=== PATIENT | female | born 1955 | race Caucasian/White ===

== ENCOUNTER → 2017-05-13 | Outpatient (CLI) | payer BC ==
--- NOTE | 2017-05-14 11:15 | MM ---
Reason for exam: screening (asymptomatic). Last mammogram was performed 1 year and 2 months ago. History: Patient is postmenopausal. Benign excisional biopsy of the right breast. Physical Findings: A clinical breast exam by your physician is recommended on an annual basis and results should be correlated with mammographic findings. MG Screening Mammo w CAD Bilateral CC and MLO view(s) were taken. Prior study comparison: March 12, 2016, bilateral MG screening mammo w CAD. March 12, 2015, bilateral MG screening mammo w CAD. There are scattered fibroglandular densities. No significant changes when compared with prior studies. ASSESSMENT: Negative, BI-RAD 1 RECOMMENDATION: Routine screening mammogram of both breasts in 1 year.
== END | disposition home or self-care (01) ==
LOC: RADMAMWWP 09:35
PROVIDERS: ATTEND Family Medicine
DX: Z12.31 Encounter for screening mammogram for malignant neoplasm of breast (principal)
CPT/HCPCS: 77067

== ENCOUNTER → 2017-05-13 | Outpatient (CLI) | payer BC ==
--- NOTE | 2017-05-13 11:24 | US ---
EXAMINATION TYPE: US liver DATE OF EXAM: 05/13/2017 COMPARISON: 03/12/2016 CLINICAL HISTORY: 61-year-old female K74.3 PRIMARY BILIARY CIRRHOSIS. Technique: Multiple sonographic images of the right upper quadrant are obtained. FINDINGS: Liver Length: 15.7 cm Gallbladder Wall: 0.2 cm CBD: 0.4 cm Right Kidney: 9.3 x 3.7 x 4.1 cm Pancreas: visualized portions wnl, tail obscured by overlying midline bowel gas Liver: There is heterogeneous echotexture with some images suggesting a nodular contour. No focal le carrie is identified. The main portal vein is patent but with somewhat sluggish hepatopedal flow at 10 cm/s. There is also mild dilatation of the main portal vein at 1.5 cm. Overall scanning of the liver is limited to intercostal views. Gallbladder: A couple small 7 mm echogenic foci are seen when the patient is in suggesting small calc meme. Evidence for sonographic Michele's sign: no CBD: wnl Right Kidney: No hydronephrosis IMPRESSION: 1. There is now heterogeneous appearance to the liver with some images showing a nodular contour. The se findings suggest cirrhosis. 2. Views of the liver are limited to intercostal windows. No focal liver lesion is seen on these view s. 3. Main portal vein is patent with appropriate flow direction but with mild dilatation and somewhat s luggish flow. Findings suggest underlying portal venous hypertension. 4. Cholelithiasis.
== END | disposition home or self-care (01) ==
LOC: RADUSWWP 09:39
DX: K76.89 Other specified diseases of liver (principal)
CPT/HCPCS: 76705

== ENCOUNTER → 2018-09-01 | Outpatient (CLI) | payer BC ==
--- NOTE | 2018-09-01 11:33 | MM ---
Reason for exam: screening (asymptomatic). Last mammogram was performed 1 year and 4 months ago. History: Patient is postmenopausal. Benign excisional biopsy of the right breast. Physical Findings: A clinical breast exam by your physician is recommended on an annual basis and results should be correlated with mammographic findings. MG Screening Mammo w CAD Bilateral CC and MLO view(s) were taken. Prior study comparison: May 13, 2017, bilateral MG screening mammo w CAD. March 12, 2016, bilateral MG screening mammo w CAD. There are scattered fibroglandular densities. There is chronic nodularity in the left axilla. There is no discrete abnormality. ASSESSMENT: Negative, BI-RAD 1 RECOMMENDATION: Routine screening mammogram of both breasts in 1 year.
== END | disposition home or self-care (01) ==
LOC: RADMAMWWP 09:41
PROVIDERS: ATTEND Family Medicine
DX: Z12.31 Encounter for screening mammogram for malignant neoplasm of breast (principal)
CPT/HCPCS: 77067

== ENCOUNTER → 2018-09-01 | Outpatient (CLI) | payer BC ==
--- NOTE | 2018-09-01 13:33 | US ---
EXAMINATION TYPE: US liver DATE OF EXAM: 09/01/2018 COMPARISON: US May 13, 2017 CLINICAL HISTORY: K74.3 Primary Billary Cirrhosis. EXAM MEASUREMENTS: Liver Length: 13.7 cm Gallbladder Wall: 0.2 cm CBD: 0.5 cm Right Kidney: 9.5 x 3.9 x 4.9 cm Pancreas: visualized portions wnl Liver: nodular contour, coarse echotexture Gallbladder: small echogenic focus appears attached to wall measures 0.7 cm. Evidence for sonographic Michele's sign: No CBD: wnl Right Kidney: No hydronephrosis or masses seen Visualized pancreas felt within normal limits. Visualized liver is lobulated in contour and heterogen eity without mass or ductal dilatation seen on images saved. No ascites is present. Gallbladder is se en without shadowing mobile gallstone. There is 7 mm shadowing focus in wall could reflect focal chol esterolosis or nonmobile calculus. Increased cortical echogenicity right kidney is present. No hydron ephrosis is seen. IMPRESSION: Stable heterogeneous hyperechoic appearance of liver with lobulated margin consistent wit h known cirrhosis.
== END | disposition home or self-care (01) ==
LOC: RADUSWWP 09:37
DX: K74.3 Primary biliary cirrhosis (principal)
CPT/HCPCS: 76705

== ENCOUNTER 2019-03-09 09:19 | Emergency (ER) | payer BC ==
[2019-03-09 09:30] VITALS: RESP 20; TEMP 97.5
--- NOTE | 2019-03-09 10:07 | ED ---
General Adult HPI - General Chief complaint: Upper Respiratory Infection Stated complaint: Poss Pneumonia Time Seen by Provider: 03/09/19 09:34 Source: patient, RN notes reviewed Mode of arrival: ambulatory Limitations: no limitations - History of Present Illness Initial comments: 63-year-old female with a past medical history of GERD, primary biliary c holangitis presents to the emergency department for cough times one month. Patient states that she is currently on Bactrim for a sinus infection and ear infection as she was having pain in both ears. States that she has had a cough for the past month. States that it is just not going away. Patient states her chest feels congested and her cough is productive. She denies any shortness of breath. Denies chest pain. Denies fevers or chills at home. Patient states that at this time she is actually feeling much better however felt worse last night so decided to be seen today. Patient has no other complaints at this time including shortness of breath, chest pain, abdominal pain, nausea or vomiting, headache, or visual changes. - Related Data Home Medications Medication Instructions Recorded Confirmed Calcium Carbonate [Calcium] 600 mg PO DAILY 01/17/16 01/17/16 Cholecalciferol [Vitamin D3] 1,000 unit PO DAILY 01/17/16 01/17/16 FLUoxetine HCL [PROzac] 20 mg PO DAILY 01/17/16 01/17/16 Loratadine [Claritin] 10 mg PO DAILY 01/17/16 01/17/16 Omeprazole [PriLOSEC] 20 mg PO DAILY PRN 01/17/16 01/20/16 Ursodiol [Actigall] 600 mg PO BID 01/17/16 01/17/16 hydrOXYzine HCL [Atarax] 25 mg PO DAILY 01/17/16 01/17/16 Previous Rx's Medication Instructions Recorded Albuterol Inhaler [Ventolin Hfa 1 - 2 puff INHALATION Q6HR PRN #1 03/09/19 Inhaler] inhaler predniSONE 50 mg PO DAILY #5 tablet 03/09/19 Allergies Allergy/AdvReac Type Severity Reaction Status Date / Time No Known Allergies Allergy Verified 03/09/19 09:30 Review of Systems ROS Statement: Those systems with pertinent positive or pertinent negative responses have been documented in the HPI. ROS Other: All systems not noted in ROS Statement are negative. Past Medical History Past Medical History: GERD/Reflux, Liver Disease Additional Past Medical History / Comment(s): primary biliary cholangitis History of Any Multi-Drug Resistant Organisms: None Reported Past Surgical History: Breast Surgery, Orthopedic Surgery Additional Past Surgical History / Comment(s): colonoscopy, tendon surg on f derrell, breast biopsy Past Anesthesia/Blood Transfusion Reactions: No Reported Reaction Smoking Status: Never smoker Past Alcohol Use History: None Reported Past Drug Use History: None Reported - Past Family History Mother Family Medical History: Deep Vein Thrombosis (DVT) General Exam Limitations: no limitations General appearance: alert, in no apparent distress Head exam: Present: atraumatic, normocephalic, normal inspection Eye exam: Present: normal appearance, PERRL, EOMI. Absent: scleral icterus, conjunctival injection, periorbital swelling ENT exam: Present: normal exam, mucous membranes moist Neck exam: Present: normal inspection, full ROM. Absent: tenderness, me ningismus, lymphadenopathy Respiratory exam: Present: normal lung sounds bilaterally. Absent: respiratory distress, wheezes (No wheezing noted bilaterally), rales, rhonchi, stridor Cardiovascular Exam: Present: regular rate, normal rhythm, normal heart sounds. Absent: systolic murmur, diastolic murmur, rubs, gallop, clicks GI/Abdominal exam: Present: soft, normal bowel sounds. Absent: distended, tenderness, guarding, rebound, rigid Neurological exam: Present: alert Course Vital Signs 03/09/19 09:25 Temperature 97.5 F L Pulse Rate 100 Respiratory 20 Rate Blood Pressure 152/79 O2 Sat by Pulse 96 Oximetry Medical Decision Making - Medical Decision Making 63-year-old female presents for cough times one month. Patient has also been congested and had ear pain. States her pain has resolved. Patient is currently a Bactrim for sinus infection. She denies any significant chest pain or shortness of breath with this cough. Patient states that cough is productive in nature. Denies COPD or smoking history. On examination lungs are clear to auscultation bilaterally. There is no wheezing or rhonchi. Patient is in no respiratory distress. Vitals are stable. No fever here or history of fever at home.Chest x-ray shows no evidence for acute pulmonary disease. Patient likely has a bronchitis. Patient will be treated with a steroid and an inhaler. She will follow up with primary care in 1-2 days prior to return here if she has any worsening symptoms such as chest pain or shortness of breath which were discussed with her. Disposition Clinical Impression: Bronchitis Disposition: HOME SELF-CARE Condition: Good Instructions (If sedation given, give patient instructions): Acute Bronchitis (ED) Additional Instructions: Please use medications as directed. These were prescribed to [facility] in [place]. Follow-up with primary care in 1-2 days. If you have any worsening symptoms such as shortness of breath or chest pain return to the emergency department. Prescriptions: predniSONE 50 mg PO DAILY #5 tablet Albuterol Inhaler [Ventolin Hfa Inhaler] 1 - 2 puff INHALATION Q6HR PRN #1 inhaler PRN Reason: Shortness Of Breath Is patient prescribed a controlled substance at d/c from ED?: No Referrals: Lalita Jules MD [Primary Care Provider] - 1-2 days Time of Disposition: 11:02
--- NOTE | 2019-03-09 10:45 | XR ---
EXAMINATION TYPE: XR chest 2V DATE OF EXAM: 03/09/2019 COMPARISON: NONE HISTORY: Shortness of breath TECHNIQUE: Frontal and lateral views of the chest are obtained. FINDINGS: Scattered senescent parenchymal changes noted. Hyperinflation compatible with COPD. No evidence for infiltrate. Right basilar linear atelectasis and/or parenchymal scarring. Heart size is stable. Mediastinal structures are stable and grossly unremarkable. No evidence for hilar prominence. Degenerative changes dorsal spine. IMPRESSION: 1. No evidence for acute pulmonary disease.
[2019-03-09 11:21] VITALS: BP 129/83; PULSE 95
== END 2019-03-09 11:21 | disposition home or self-care (01) ==
LOC: EC 09:19
DX: J40 Bronchitis, not specified as acute or chronic (principal); J32.9 Chronic sinusitis, unspecified; K21.9 Gastro-esophageal reflux disease without esophagitis; Z79.899 Other long term (current) drug therapy
CPT/HCPCS: 71046; 99283

== ENCOUNTER → 2019-03-15 | Outpatient (CLI) | payer BC ==
--- NOTE | 2019-03-15 15:49 | US ---
EXAMINATION TYPE: US pelvic complete DATE OF EXAM: 03/15/2019 COMPARISON: NONE CLINICAL HISTORY: N93.9 ABN UTERINE AND VAG BLEEDING. 1 episode of spotting. Patient doesn't take any hormones. TECHNIQUE: Transabdominal (TA). Date of LMP: 2010 EXAM MEASUREMENTS: Uterus: 5.3 x 2.1 x 3.1 cm Endometrial Stripe: 0.4 cm Right Ovary: 1.5 x 1.3 x 1.4 cm Left Ovary: 1.8 x 1.0 x 1.2 cm 1. Uterus: Anteverted wnl 2. Endometrium: wnl 3. Right Ovary: wnl 4. Left Ovary: wnl 5. Bilateral Adnexa: wnl 6. Posterior cul-de-sac: wnl IMPRESSION: Unremarkable pelvic ultrasound. Endometrial thickness is within normal limits for a postm enopausal female. Direct visualization should remain a consideration in this patient with [place] bleeding.
== END | disposition home or self-care (01) ==
LOC: RADUSWWP 15:16
PROVIDERS: ATTEND Family Medicine
DX: N95.0 Postmenopausal bleeding (principal)
CPT/HCPCS: 76856

== ENCOUNTER → 2019-06-16 | Outpatient (CLI) | payer BC ==
--- NOTE | 2019-06-16 15:18 | US ---
EXAMINATION TYPE: US liver DATE OF EXAM: 06/16/2019 COMPARISON: NONE CLINICAL HISTORY: K74.60 CIRRHOSIS OF LIVER. EXAM MEASUREMENTS: Liver Length: 16.6 cm Gallbladder Wall: 0.2 cm CBD: 0.6 cm Right Kidney: 9.2 x 3.6 x 4.0 cm Pancreas: wnl Liver: grossly heterogeneous and nodular Gallbladder: partially obscured by overlying bowel gas, small non mobile echogenic focus seen Evidence for sonographic Michele's sign: no CBD: wnl Right Kidney: Inferior pole completely obscured by overlying bowel gas IMPRESSION: 1. No acute ultrasound abnormality. 2. Mild hepatomegaly signal change can be compatible with early cirrhosis.
== END | disposition home or self-care (01) ==
LOC: RADUSWWP 07:39
PROVIDERS: ATTEND Internal Medicine Gastroenterology
DX: R16.0 Hepatomegaly, not elsewhere classified (principal); K74.60 Unspecified cirrhosis of liver
CPT/HCPCS: 76705

== ENCOUNTER → 2020-01-11 | Outpatient (CLI) | payer BC ==
--- NOTE | 2020-01-15 09:06 | MM ---
Reason for exam: screening (asymptomatic). Last mammogram was performed 1 year and 4 months ago. History: Patient is postmenopausal. Benign excisional biopsy of the right breast. Physical Findings: A clinical breast exam by your physician is recommended on an annual basis and results should be correlated with mammographic findings. MG Screening Mammo w CAD Bilateral CC and MLO view(s) were taken. Prior study comparison: September 01, 2018, bilateral MG screening mammo w CAD. May 13, 2017, bilateral MG screening mammo w CAD. There are scattered fibroglandular densities. There is chronic nodularity in the left breast. No significant changes when compared with prior studies. ASSESSMENT: Benign, BI-RAD 2 RECOMMENDATION: Routine screening mammogram of both breasts in 1 year.
== END | disposition home or self-care (01) ==
LOC: RADMAMWWP 11:18
PROVIDERS: ATTEND Family Medicine
DX: Z12.31 Encounter for screening mammogram for malignant neoplasm of breast (principal)
CPT/HCPCS: 77067

== ENCOUNTER 2020-06-20 11:05 | Day surgery (SDC) | payer BC ==
[2020-06-19 10:26] VITALS: BMI 28.3
[~2020-06-20 11:05] MED LIST: LIDOCAINE 1% (10MG/ML) FOR IV START INTRADERMA PRN
[2020-06-20 11:45] VITALS: TEMP 98.5
[2020-06-20] MEDS: LACTATED RINGERS 1,000 ML IV SCH ×2 (11:51→13:15)
[2020-06-20] MEDS ORDERED: LIDOCAINE 1% INJ 10MG/ML (20 ML MDV) ONE (13:16)
[2020-06-20] MEDS ORDERED: PROPOFOL 10 MG/ML 20 ML VIAL IV ONE (13:16)
[2020-06-20 13:39] VITALS: RESP 16
--- NOTE | 2020-06-20 13:45 | P.PCN ---
Date of Procedure: 06/20/20 Description of Procedure: BRIEF HISTORY: Patient is a 64-year-old female presenting for outpatient esophagogastroduodenoscopy for evaluation of GERD. Patient reports symptoms of reflux and intermittent solid food dysphagia. She has a known history of primary biliary cholangitis on Actigall. PROCEDURE PERFORMED: Esophagogastroduodenoscopy with biopsy. PREOPERATIVE DIAGNOSIS: GERD, esophageal dysphagia, primary biliary cholangitis. ESTIMATED BLOOD LOSS: Minimal. IV sedation per anesthesia. PROCEDURE: After informed consent was obtained, the patient was brought into the endoscopy unit. IV sedation was administered by Anesthesia under continuous monitoring. Initially the Olympus GIF-190 video endoscope was inserted into the mouth. Esophagus intubated without any difficulty. It was gradually advanced into the stomach and duodenum and carefully examined. The bulb and the second part of the duodenum appeared normal, with biopsies taken. The scope at this time was withdrawn to the stomach, adequately insufflated with air, and upon careful examination, mucosa of the antrum, body, cardia and the fundus appeared normal, with some mild scattered erythema and nodularity suggestive of mild gastritis with biopsies of the antrum and body taken. The scope was then withdrawn into t he esophagus. The GE junction was located at 36 cm from the incisors and biopsied. Patient had a 3 cm hiatal hernia. The esophagus was biopsied to rule out eosinophilic esophagitis. The esophagus appeared normal. There were no erosions or ulcerations seen and the patient tolerated the procedure well. IMPRESSION: 1. Mild gastritis. 2. Moderate hiatal hernia. 3. Biopsies of the duodenum, antrum and body, GE junction and mid esophagus. RECOMMENDATIONS: The findings of this examination were discussed with the patient and her family. Okay to resume diet. Okay to resume medication. Continue current medical management. Follow-up in the GI clinic as scheduled for results of biopsies.
[2020-06-20 14:09] VITALS: BP 135/87; PULSE 76
== END 2020-06-20 14:26 | disposition home or self-care (01) ==
LOC: ORWHC2ENDO 11:05
PROVIDERS: ATTEND Internal Medicine
DX: K29.50 Unspecified chronic gastritis without bleeding (principal); D72.10 Eosinophilia, unspecified; K44.9 Diaphragmatic hernia without obstruction or gangrene; R13.14 Dysphagia, pharyngoesophageal phase; F32.9 Major depressive disorder, single episode, unspecified; R23.4 Changes in skin texture; Z98.890 Other specified postprocedural states; Z87.19 Personal history of other diseases of the digestive system; Z79.899 Other long term (current) drug therapy
CPT/HCPCS: 43239; 88305; 88312; 88342

== ENCOUNTER → 2020-06-25 | Outpatient (CLI) | payer BC ==
--- NOTE | 2020-06-25 17:22 | US ---
EXAMINATION TYPE: US liver DATE OF EXAM: 06/25/2020 COMPARISON: US 2019 CLINICAL HISTORY: K74.60 Unspecified cirrhosis of liver. EXAM MEASUREMENTS: Liver Length: 16.2 cm Gallbladder Wall: 0.2 cm CBD: 0.3 cm Right Kidney: 9.0 x 3.6 x 4.1 cm Pancreas: visualized portions wnl, limited by overlying midline bowel gas Liver: heterogeneous and nodular Gallbladder: wnl Evidence for sonographic Michele's sign: no CBD: visualized portions wnl, limited by overlying bowel gas Right Kidney: wnl IMPRESSION: 1. Heterogenous appearance to the liver. Mild hepatomegaly is present.
== END | disposition home or self-care (01) ==
LOC: RADUSWWP 07:41
PROVIDERS: ATTEND Internal Medicine Gastroenterology
DX: R16.0 Hepatomegaly, not elsewhere classified (principal); K74.60 Unspecified cirrhosis of liver
CPT/HCPCS: 76705

== ENCOUNTER → 2021-03-07 | Outpatient (CLI) | payer BC ==
--- NOTE | 2021-03-07 08:41 | US ---
EXAMINATION TYPE: US liver DATE OF EXAM: 03/07/2021 COMPARISON: US 06-25-2020 CLINICAL HISTORY: K74.60 CIRRHOSIS IF LIVER. EXAM MEASUREMENTS: Liver Length: 15.9 cm Gallbladder Wall: 0.2 cm CBD: 0.4 cm Right Kidney: 9.1 x 3.7 x 3.8 cm Pancreas: visualized portions wnl, limited by overlying midline bowel gas Liver: nodular, heterogeneous Gallbladder: wnl Evidence for sonographic Michele's sign: no CBD: visualized portions wnl, limited by overlying bowel gas Right Kidney: wnl IMPRESSION: The liver is nodular in contour and heterogeneous in echotexture, consistent with prior cirrhosis.
== END | disposition home or self-care (01) ==
LOC: RADUSWWP 07:56
PROVIDERS: ATTEND Internal Medicine Gastroenterology
DX: K74.60 Unspecified cirrhosis of liver (principal)
CPT/HCPCS: 76705

== ENCOUNTER → 2021-03-07 | Outpatient (CLI) | payer BC ==
--- NOTE | 2021-03-10 11:02 | MM ---
Reason for exam: screening (asymptomatic). Last mammogram was performed 1 year and 2 months ago. History: Patient is postmenopausal. Benign excisional biopsy of the right breast. Physical Findings: A clinical breast exam by your physician is recommended on an annual basis and results should be correlated with mammographic findings. MG Screening Mammo w CAD Bilateral CC and MLO view(s) were taken. Prior study comparison: January 11, 2020, bilateral MG screening mammo w CAD. September 01, 2018, bilateral MG screening mammo w CAD. There is chronic nodularity in the left breast. No significant changes when compared with prior studies. ASSESSMENT: Benign, BI-RAD 2 RECOMMENDATION: Routine screening mammogram of both breasts in 1 year.
== END | disposition home or self-care (01) ==
LOC: RADMAMWWP 07:54
PROVIDERS: ATTEND Family Medicine
DX: Z12.31 Encounter for screening mammogram for malignant neoplasm of breast (principal); Z78.0 Asymptomatic menopausal state
CPT/HCPCS: 77067

== ENCOUNTER → 2022-03-13 | Outpatient (CLI) | payer MEDICARE ==
--- NOTE | 2022-03-13 11:57 | US ---
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 TECHNIQUE: Multiple sonographic images of the abdomen are obtained. FINDINGS: EXAM MEASUREMENTS: Liver Length: 16.2 cm Gallbladder Wall: 0.2 cm CBD: 0.8 cm Spleen: 11.2 cm Right Kidney: 9.0 x 3.7 x 4.3 cm Left Kidney: 9.7 x 4.6 x 4.0 cm Pancreas: visualized portions wnl, limited by overlying midline bowel gas Liver: nodular, heterogeneous , no evidence of suspicious mass. Gallbladder: 0.6 cm mobile stone Evidence for sonographic Michele's sign: no CBD: dilated Spleen: wnl Right Kidney: wnl Left Kidney: 1.6 x 1.9 x 1.6cm hypoechoic area midpole Upper IVC: wnl Abd Aorta: wnl IMPRESSION: 1. Hepatic cirrhosis without suspicious masses visualized. 2. Cholelithiasis. 3. No evidence of obstructive uropathy. 4. Left renal cyst.
== END | disposition home or self-care (01) ==
LOC: RADUSWWP 11:01
DX: K74.3 Primary biliary cirrhosis (principal); K80.20 Calculus of gallbladder without cholecystitis without obstruction; N28.1 Cyst of kidney, acquired
CPT/HCPCS: 76700

== ENCOUNTER → 2022-03-13 | Outpatient (CLI) | payer MEDICARE ==
--- NOTE | 2022-03-16 07:47 | MM ---
Reason for Exam: Screening (asymptomatic). Last screening mammogram was performed 12 month(s) ago. Patient History: Menarche at age 14. First Full-Term at age 31. Late child-bearing (after 30). Postmenopausal. Benign Excisional Biopsy on the right side. Risk Values: Lora 5 year model risk: 2.7%. NCI Lifetime model risk: 10.0%. Prior Study Comparison: 09/01/2018 Bilateral Screening Mammogram, [facility]. 01/11/2020 Bilateral Screening Mammogram, [facility]. 03/07/2021 Bilateral Screening Mammogram, [facility]. Tissue Density: There are scattered fibroglandular densities. Findings: Analyzed By CAD. There is no suspicious group of microcalcifications or new suspicious mass in either breast. Overall Assessment: Negative, BI-RAD 1 Management: Screening Mammogram of both breasts in 1 year. A clinical breast exam by your physician is recommended on an annual basis and results should be correlated with mammographic findings. Electronically signed and approved by: Stuart Casillas M.D. Radiologis
== END | disposition home or self-care (01) ==
LOC: RADUSWWP 10:53
PROVIDERS: ATTEND Family Medicine
DX: Z12.31 Encounter for screening mammogram for malignant neoplasm of breast (principal); Z78.0 Asymptomatic menopausal state
CPT/HCPCS: 77067

== ENCOUNTER → 2024-01-04 | Outpatient (CLI) | payer MEDICARE ==
--- NOTE | 2024-01-05 17:20 | MM ---
Reason for Exam: Screening (asymptomatic). Last mammogram was performed 1 year(s) and 10 month(s) ago. Patient History: Menarche at age 14. First Full-Term at age 31. Late child-bearing (after 30). Postmenopausal. Benign Excisional Biopsy on the right side. Risk Values: Lora 5 year model risk: 2.8%. NCI Lifetime model risk: 9.3%. Prior Study Comparison: 01/11/2020 Bilateral Screening Mammogram, [facility]. 03/07/2021 Bilateral Screening Mammogram, [facility]. 03/13/2022 Bilateral MG screening mammo w CAD, [facility]. Tissue Density: There are scattered areas of fibroglandular density. Findings: Analyzed By CAD. Unchanged low axillary tail lymph node on the left. There is no suspicious group of microcalcifications or new suspicious mass in either breast. Overall Assessment: Benign, BI-RAD 2 Management: Screening Mammogram of both breasts in 1 year. . Patient should continue monthly self-breast exams. A clinical breast exam by your physician is recommended on an annual basis. This exam should not preclude additional follow-up of suspicious palpable abnormalities. Note on Lora scores and lifetime risk: 1. A Lora score greater than 3% is considered moderate risk. If this is the case, consider specialist referral to assess eligibility for a risk reducing agent. 2. If overall lifetime risk for the development of breast cancer is 20% or higher, the patient may qualify for future screening with alternating mammogram and breast MRI. Electronically signed and approved by: Mar Verduzco M.D. Radiologist
== END | disposition home or self-care (01) ==
LOC: RADMAMWWP 10:45
PROVIDERS: ATTEND Family Medicine
DX: Z12.31 Encounter for screening mammogram for malignant neoplasm of breast
CPT/HCPCS: 77063; 77067